=== PATIENT | male | born 1950 | race Caucasian/White ===

== ENCOUNTER 2019-12-14 03:34 | Inpatient (IN) | payer MEDICARE, OTHER ==
[~2019-12-14] VITALS: Ht 180.3 cm; Wt 80.0 kg
[~2019-12-14 03:34] MED LIST: FLUT250M9
[2019-12-14 04:18] LABS: Basophils # (auto) 0.1 10 ^3/uL (0-0.2); Basophils % (auto) 0.8 % (0.0-2.0); Eosinophils # (auto) 1.2 10 ^3/uL (0-0.8); Eosinophils % (auto) 11.7 % (0.0-7.0); Hematocrit 50.3 % (41.0-53.0); Hemoglobin 16.7 g/dL (13.5-17.5); Lymphocytes # (auto) 2.4 10 ^3/uL (0.4-5.4); Lymphocytes % (auto) 24.6 % (10.0-50.0); Mean Corpuscular Hemoglobin 30.8 pg (28.0-32.0); Mean Corpuscular Hgb Conc. 33.1 g/dL (32.0-36.0); Mean Corpuscular Volume 92.9 fL (80.0-100.0); Monocytes # (auto) 0.8 10 ^3/uL (0-1.3); Monocytes % (auto) 8.5 % (0.0-12.0); Neutrophils # (auto) 5.4 10 ^3/uL (1.6-8.6); Neutrophils % (auto) 54.4 % (37.0-80.0); Nucleated Red Blood Cells % 0.1 %; Platelet Count (auto) 260 10^3/uL (140-450); Red Blood Cells 5.41 10^6/uL (4.5-5.90); Red Cell Distribution Width 12.9 % (11.8-14.3); White Blood Cell 9.9 10^3/uL (4.4-10.8)
[2019-12-14 04:37] LABS: Albumin 3.5 g/dL (3.4-5.0); Calcium 9.1 mg/dL (8.5-10.1); Potassium 3.8 mmol/L (3.5-5.1)
[2019-12-14 04:40] LABS: BUN/Creatinine Ratio 15.3; Magnesium 2.3 mg/dL (1.6-2.6)
[2019-12-14 04:45] LABS: Bilirubin, Total 0.4 mg/dL (0.2-1.0); Total Protein 7.4 g/dL (6.4-8.2)
[2019-12-14] MEDS ORDERED: DEXTROSE (50%) 50ML SYRG IV PRN (07:15)
[2019-12-14] MEDS ORDERED: ONDANSETRON HCL 4 MG/2 ML VIAL IV PRN (07:15)
[2019-12-14] MEDS ORDERED: LORazepam 0.5 MG TAB PO PRN (07:15)
[2019-12-14] MEDS ORDERED: HYDROcodone-ACET 5/325MG TAB PO PRN (07:15)
[2019-12-14] MEDS ORDERED: DOCUSATE SOD 100 MG CAP PO PRN (07:15)
[2019-12-14] MEDS ORDERED: ACETAMINOPHEN 325 MG TAB PO PRN (07:15)
[2019-12-14] MEDS ORDERED: MORPHINE SULFATE 4 MG/ML SYR/VIAL IV PRN (07:15)
[2019-12-14] MEDS: SODIUM CHLORIDE 0.9% 1,000 ML IV SCH (07:50)
[2019-12-14] MEDS: ACCU-CHEK COMFORT CURVE STRIP VI SCH ×4 (07:51→20:23)
[2019-12-14] MEDS: InsuLIN REG 1unit/0.01ml Soln (100units/ml) SC SCH ×4 (07:51→20:00)
[2019-12-14] MEDS: ALBUTEROL SULF 2.5 MG/0.5ML(0.5%) NEB SOLN NEB PRN ×3 (09:01→21:54)
[2019-12-14] MEDS: IPRATROPIUM BROM 0.5 MG/2.5ML INH SOL NEB PRN ×2 (09:01→19:30)
[2019-12-14] MEDS: cefTRIAXone 1GM/50ML D5W 50 ML IV SCH (09:42)
[2019-12-14] MEDS ORDERED: methylPREDNISolone SOD SUCC 125 MG/2 ML VL IV SCH (10:00)
[2019-12-14 10:42] VITALS: BP 117/82
--- NOTE | 2019-12-14 10:47 | NUR ---
Telemetry admit from ER: SOTO CHAUDHARY admitted to Telemetry unit after SBAR received. Patient oriented to JANICE ESPINAL, RN primary RN, unit, room, bed, and unit policies regarding patient care and visiting hours. Patient now on continuous telemetry monitoring, tele box # 64 and telemetry reading on arrival to unit is ST. Patient placed on bedside oxygen 2 LPM, weighed by bedscale and encouraged to call if they need something. All questions and concerns addressed, patient verbalized understanding.
[2019-12-14 10:50] VITALS: BP 127/83
--- NOTE | 2019-12-14 11:55 | NUR ---
DR. MCCURDY: Dr. Almanza at bedside. Discussed POC with patient, patient verbally agreed. Per Dr. Almanza request, Dr. Roca was called.
[2019-12-14 13:00] VITALS: BP 146/77
--- NOTE | 2019-12-14 14:59 | NUR ---
DR. MCCURDY: Dr. Roca at bedside. Discussed POC with patient. Patient verbally agreed.
[2019-12-14] MEDS ORDERED: AZITHROMYCIN 250 MG TAB PO ONE (15:15)
[2019-12-14 16:49] VITALS: BP 124/75
--- NOTE | 2019-12-14 17:45 | NUR ---
Sputum sample collected and sent. MRSA sawb collected and sent. Flu swab collected and sent.
--- NOTE | 2019-12-14 18:57 | NUR ---
Closing note: Patient resting in bed. On 2 LPM NC. no S/S of distress, SOB or pain at this time. Care endorsed to NOC RN.
--- NOTE | 2019-12-14 19:30 | NUR ---
Respiratory note: PAGED TO BEDSIDE FOR MED NEB TX . PT PRESENTING WITH SOB AND BS ARE COURSE WHEEZES T/O RIGHT LUNG, DIMINISHED TO RIGHT LUNG. POST MED NEB BS HEARD, IMPROVED AERATION, FINE COURSE WHEEZES HEARD T/O BILATERAL LUNGS. RT NAMEN AND PAGER ASSIGNMENT WRITTEN ON PTS ROOM BOARD WILL CONTINUE TO MONITOR.
--- NOTE | 2019-12-14 19:35 | NUR ---
Opening Shift Note Assumed care of patient, awake and alert. Complained of SOB. O2 Sat at 92% at 2 Lpm/NC, lungs wheezes upon auscultation. Paged RT for breathing treatment, will continue to monitor for changes Q1hr and PRN.
[2019-12-14 20:00] VITALS: BP 125/73
--- NOTE | 2019-12-14 20:15 | NUR ---
Patient refused Insulin for now. Per patient, he just ate his dinner. Will check Blood Sugar at 0000
[2019-12-14 21:02] LABS: Urine Bacteria NONE SEEN /hpf (None Seen); Urine Blood Negative /uL (Negative); Urine Mucus FEW (None Seen); Urine Specific Gravity 1.016 (1.001-1.035); Urine WBC 2 /hpf (0 - 3)
[2019-12-14 21:21] LABS: Alcohol, Urine < 3.0 mg/dL (0-5); Amphetamine Screen, Urine NEGATIVE (NEGATIVE); Barbiturate Scree,Urine NEGATIVE (NEGATIVE); Benzodiazephine Screen, Urine NEGATIVE (NEGATIVE); Cannabinoid Screen, Urine NEGATIVE (NEGATIVE); Cocaine Screen, Urine NEGATIVE (NEGATIVE); Opiate Scree,Urine NEGATIVE (NEGATIVE); Phencyclidine Screen, Urine NEGATIVE (NEGATIVE)
[2019-12-14] MEDS: methylPREDNISolone SOD SUCC 125 MG/2 ML VL IV SCH (21:35)
[2019-12-14] MEDS: ACETYLCYSTEINE 10 %(100MG/ML) SOL 4ML NEB SCH (21:54)
--- NOTE | 2019-12-14 21:58 | NUR ---
Respiratory note: AT BEDSIDE FOR MED NAYAN KELLY.
[2019-12-14 22:20] VITALS: BP 125/73
[2019-12-15] MEDS: ACCU-CHEK COMFORT CURVE STRIP VI SCH ×7 (00:41→23:50)
[2019-12-15] MEDS: SODIUM CHLORIDE 0.9% 1,000 ML IV SCH ×2 (00:41→18:41)
[2019-12-15] MEDS: InsuLIN REG 1unit/0.01ml Soln (100units/ml) SC SCH ×7 (04:00→23:51)
[2019-12-15] MEDS: methylPREDNISolone SOD SUCC 125 MG/2 ML VL IV SCH ×3 (05:42→21:23)
[2019-12-15] MEDS: PANTOPRAZOLE 40 MG TAB PO SCH ×2 (05:43→10:07)
[2019-12-15 05:50] VITALS: BP 119/80
--- NOTE | 2019-12-15 07:17 | NUR ---
Opening Shift Note: Assumed care of patient, awake and alert. No S/S of distress/SOB or pain. Bed in lowest locked position, side rails up x 2, call light within reach. Patient on 2 LPM NC. Patient instructed on POC and to call for assist PRN, will continue to monitor for changes Q1hr and PRN.
[2019-12-15] MEDS: ALBUTEROL SULF 2.5 MG/0.5ML(0.5%) NEB SOLN NEB PRN ×3 (07:26→22:41)
[2019-12-15] MEDS: ACETYLCYSTEINE 10 %(100MG/ML) SOL 4ML NEB SCH ×3 (07:26→22:41)
[2019-12-15] MEDS: IPRATROPIUM BROM 0.5 MG/2.5ML INH SOL NEB PRN ×3 (07:26→22:41)
--- NOTE | 2019-12-15 07:33 | NUR ---
med neb tx administerec with ez pap peep set to 5 cmh2o. pt tolerated well with good pt effort.
[2019-12-15 09:00] VITALS: BP 114/64
[2019-12-15] MEDS: cefTRIAXone 1GM/50ML D5W 50 ML IV SCH (10:06)
[2019-12-15] MEDS: AZITHROMYCIN 250 MG TAB PO SCH (10:07)
[2019-12-15 13:00] VITALS: BP 141/66
--- NOTE | 2019-12-15 14:27 | NUR ---
MED NEB ADMINISTERED WITH EZ PAP THERAPY, PEEP 5 CM H2O. PT TOLERATED TX WELL WITH GOOD PT EFFORT. NO ADVERSE REACTIONS TO MEDICATION.
[2019-12-15 16:56] VITALS: BP 116/58
--- NOTE | 2019-12-15 19:20 | NUR ---
CLOSING NOTE: Patient resting in bed. No S/S of pain distress or SOB at this time. Care endorsed to NOC RN.
[2019-12-15 21:21] VITALS: BP 128/83
[2019-12-16] MEDS: InsuLIN REG 1unit/0.01ml Soln (100units/ml) SC SCH ×5 (04:00→20:00)
[2019-12-16] MEDS: ACCU-CHEK COMFORT CURVE STRIP VI SCH ×5 (04:42→20:09)
[2019-12-16] MEDS: methylPREDNISolone SOD SUCC 125 MG/2 ML VL IV SCH ×3 (05:34→21:36)
[2019-12-16 05:35] VITALS: BP 136/82
[2019-12-16] MEDS: ACETYLCYSTEINE 10 %(100MG/ML) SOL 4ML NEB SCH ×3 (07:32→22:57)
[2019-12-16] MEDS: ALBUTEROL SULF 2.5 MG/0.5ML(0.5%) NEB SOLN NEB PRN ×3 (07:32→22:57)
[2019-12-16] MEDS: IPRATROPIUM BROM 0.5 MG/2.5ML INH SOL NEB PRN ×3 (07:32→22:57)
--- NOTE | 2019-12-16 07:35 | NUR ---
MED NEB ADMINISTERED WITH EZ PAP 5 CM H2O PEEP. PT TOLERATED WELL WITH GOOD PT EFFORT.
[2019-12-16 08:00] VITALS: BP 130/83
[2019-12-16 09:00] VITALS: BP 130/83
[2019-12-16] MEDS: AZITHROMYCIN 250 MG TAB PO SCH (09:48)
[2019-12-16] MEDS: PANTOPRAZOLE 40 MG TAB PO SCH (09:48)
[2019-12-16] MEDS: SODIUM CHLORIDE 0.9% 1,000 ML IV SCH (09:48)
[2019-12-16] MEDS: cefTRIAXone 1GM/50ML D5W 50 ML IV SCH (09:48)
--- NOTE | 2019-12-16 11:35 | NUR ---
DR HODGSON BEDSIDE WITH PATIENT DISCUSSING PLAN OF CARE. ORDERS CARRIED OUT RECEIVED.
[2019-12-16 13:00] VITALS: BP 124/78
--- NOTE | 2019-12-16 13:25 | NUR ---
RECEIVED CALL FROM RT, PATIENT DOES NOT QUALIFY FOR HOME 02. PAGED DR HODGSON TO INFORM HIM.
--- NOTE | 2019-12-16 14:20 | NUR ---
DR HODGSON HOLDING D/C FOR 1 MORE DAY. RT PAGED TO ACCESS PATIENTS 02 AFTER AMBULATION
--- NOTE | 2019-12-16 16:22 | NUR ---
Patient is a 69-year-old male who is alert and oriented. Prior to admission patient lived home with his family and functioned independently. Patient informed me he can care for his own ADLs. Per patient he will return home to his prior living arrangements post discharge and family will transport him home. Advised patient there is a Social Service consult for home oxygen and nebulizer. Informed patient nurse advised me ABG results came in and he does not meet criteria for home oxygen however, will let doctor know to evaluate him. Informed patient Clinical information will be faxed to [facility]. Nurse advised me doctor will keep patient another day to see how he does without oxygen and will evaluate on Sunday12-17-2019. Informed patient he has the right to participate in all discharge planning. Patient verbalized understanding and agrees to discharge plan. Faxed Clinical information to [facility]. Griffin Chavira with [employer] order was received and they will review order. Will follow up in the morning. Addendum: 12/16/19 at 1624 by LAUREANO PATEL Amended: Links added.
[2019-12-16 16:43] VITALS: BP 146/85
--- NOTE | 2019-12-16 16:45 | NUR ---
PATIENT AMBULATED UP AND DOWN [place] WITHOUT OXYGEN. PATIENTS O2 SAT AT 84% WITH SOB UPON RETURN TO BED. PATIENT BACK ON 2LNC. WILL CONTINUE TO MONITOR.
--- NOTE | 2019-12-16 16:50 | NUR ---
PATIENT O2 AT 94% ON 2LNC
--- NOTE | 2019-12-16 19:50 | NUR ---
Opening Shift Note Assumed care of patient, awake and alert. No S/S of distress/SOB or pain. Instructed on POC and to call for assist PRN. Bed in lowest locked position, call light within reach, side rails up x2, fall precautions in place. Will continue to monitor for changes Q1hr and PRN.
[2019-12-16 22:00] VITALS: BP 143/81
[2019-12-17] MEDS: ACCU-CHEK COMFORT CURVE STRIP VI SCH ×4 (00:05→12:00)
[2019-12-17] MEDS: SODIUM CHLORIDE 0.9% 1,000 ML IV SCH (02:30)
[2019-12-17] MEDS: InsuLIN REG 1unit/0.01ml Soln (100units/ml) SC SCH ×4 (03:57→12:00)
[2019-12-17 05:00] VITALS: BP 130/85
[2019-12-17] MEDS: methylPREDNISolone SOD SUCC 125 MG/2 ML VL IV SCH ×2 (06:07→14:23)
--- NOTE | 2019-12-17 07:30 | NUR ---
Opening shift note Assumed care of patient. Patient A&Ox4, Respirations even and non-labored with no s/s of distress. Discussed POC with patient who verbalized understanding. IV flushed, patent and intact. Bed lowered/locked with 2 side rails up. Will continue to monitor.
[2019-12-17] MEDS: ACETYLCYSTEINE 10 %(100MG/ML) SOL 4ML NEB SCH ×2 (07:39→15:10)
[2019-12-17] MEDS: ALBUTEROL SULF 2.5 MG/0.5ML(0.5%) NEB SOLN NEB PRN ×2 (07:39→16:02)
--- NOTE | 2019-12-17 07:39 | NUR ---
RT NOTE: PT TOLERATED BOTH CPT AND EZ-PAP DURING TX. WILL CONTINUE TO MONITOR.
[2019-12-17 08:00] VITALS: BP 130/85
--- NOTE | 2019-12-17 08:00 | NUR ---
ACCUCHECK ACCU-CHECK 177, INSULIN HELD. PATIENT STATES HE IS NOT DIABETIC AND HIS BLOOD SUGAR WILL GO BACK DOWN ON ITS OWN, BECAUSE HE JUST ATE BREAKFAST. WILL CONTINUE TO MONITOR.
[2019-12-17 08:30] VITALS: BP 132/62
[2019-12-17 10:39] VITALS: BP 132/62
[2019-12-17] MEDS: AZITHROMYCIN 250 MG TAB PO SCH (10:42)
[2019-12-17] MEDS: PANTOPRAZOLE 40 MG TAB PO SCH (10:42)
[2019-12-17] MEDS: cefTRIAXone 1GM/50ML D5W 50 ML IV SCH (10:54)
[2019-12-17 12:34] VITALS: BP 139/70
--- NOTE | 2019-12-17 15:39 | NUR ---
D/C granite polisher apprentice Kelly advised me they repeated ABG and he still does not qualify for home O2. Placed followed up called to Cait Larson ). Cait advised me they will deliver nebulizer to patient home and will teach him how to use it. Nurse Sarah was informed. Addendum: 12/17/19 at 1543 by LAUREANO PATEL Amended: Links added.
[2019-12-17] MEDS: IPRATROPIUM BROM 0.5 MG/2.5ML INH SOL NEB PRN (16:02)
[2019-12-17 16:40] VITALS: BP 116/62
== END 2019-12-17 18:03 | disposition home or self-care (01) | DRG 189 ==
LOC: EDBD 03:34 → ER 03:34 → TELE 03:35 → TELE-WESTW 10:49
PROVIDERS: ADMIT Hospitalist; ATTEND Internal Medicine
DX: J96.01 Acute respiratory failure with hypoxia (principal); J20.9 Acute bronchitis, unspecified; J98.09 Other diseases of bronchus, not elsewhere classified; J43.9 Emphysema, unspecified; R73.9 Hyperglycemia, unspecified; Z79.899 Other long term (current) drug therapy
CPT/HCPCS: 36415; 36600; 71045; 71250; 80053; 80307; 81001; 82805; 82962; 83036; 83735; 83880; 84443; 84484; 85025; 87070; 87081; 87205; 87804; 93005; 94640; 94667; 94668; 96365; 96375; G0378; J0696

== ENCOUNTER 2020-01-13 23:18 | Inpatient (IN) | payer MEDICARE ==
[~2020-01-13] VITALS: Ht 180.3 cm; Wt 75.2 kg
[2020-01-14] VITALS (7 sets, daily range): BP systolic 116–150; BP diastolic 66–77
[2020-01-14 00:26] LABS: Basophils # (auto) 0.1 10 ^3/uL (0-0.2); Basophils % (auto) 1.2 % (0.0-2.0); Eosinophils # (auto) 1.1 10 ^3/uL (0-0.8); Eosinophils % (auto) 10.6 % (0.0-7.0); Hematocrit 49.6 % (41.0-53.0); Hemoglobin 16.4 g/dL (13.5-17.5); Mean Corpuscular Hemoglobin 30.8 pg (28.0-32.0); Mean Corpuscular Volume 93.2 fL (80.0-100.0); Monocytes % (auto) 9.7 % (0.0-12.0); Neutrophils # (auto) 6.2 10 ^3/uL (1.6-8.6); Neutrophils % (auto) 59.5 % (37.0-80.0); Nucleated Red Blood Cells % 0.1 %; Platelet Count (auto) 306 10^3/uL (140-450); Red Blood Cells 5.32 10^6/uL (4.5-5.90); Red Cell Distribution Width 13.4 % (11.8-14.3); White Blood Cell 10.4 10^3/uL (4.4-10.8)
[2020-01-14 00:43] LABS: INR 1.06 (0.9-1.15); Partial Thromboplastin Time 31.7 sec (23.64-32.05)
[2020-01-14 00:44] LABS: Albumin 3.7 g/dL (3.4-5.0); BUN/Creatinine Ratio 13.8; Calcium 8.9 mg/dL (8.5-10.1); Magnesium 2.6 mg/dL (1.6-2.6)
[2020-01-14 00:48] LABS: Bilirubin, Total 0.2 mg/dL (0.2-1.0); Total Protein 7.2 g/dL (6.4-8.2)
[2020-01-14] MEDS ORDERED: IPRATROPIUM BROM 0.5 MG/2.5ML INH SOL NEB ONE (01:15)
[2020-01-14] MEDS ORDERED: LORazepam 2MG/ML-1ML VIAL IV ONE (01:15)
[2020-01-14] MEDS ORDERED: ALBUTEROL SULF 2.5 MG/0.5ML(0.5%) NEB SOLN NEB ONE (01:15)
[2020-01-14] MEDS ORDERED: ALBUTEROL SULF 2.5 MG/0.5ML(0.5%) NEB SOLN ONE (01:15)
[2020-01-14] MEDS ORDERED: methylPREDNISolone SOD SUCC 125 MG/2 ML VL IV ONE (01:15)
[2020-01-14] MEDS ORDERED: IPRATROPIUM BROM 0.5 MG/2.5ML INH SOL ONE (01:15)
[2020-01-14] MEDS ORDERED: cloNIDine HCL 0.1 MG TAB PO PRN (04:45)
[2020-01-14] MEDS ORDERED: ONDANSETRON HCL 4 MG/2 ML VIAL IV PRN (04:45)
[2020-01-14] MEDS ORDERED: TEMAZEPAM 15 MG CAP PO PRN (04:45)
[2020-01-14] MEDS ORDERED: ACETAMINOPHEN 325 MG TAB PO PRN (04:45)
[2020-01-14] MEDS ORDERED: MORPHINE SULF INJ 2 MG/ML SYRINGE 1ML IV PRN (05:00)
[2020-01-14] MEDS ORDERED: NITROGLYCERIN 0.4 MG SL TAB SL PRN (05:00)
--- NOTE | 2020-01-14 05:40 | NUR ---
ARRIVAL NOTE: PATIENT ARRIVED TO UNIT IN WHEELCHAIR. PATIENT AMBULATED TO BED WELL ON HIS OWN.ALERT AND ORIENTED X4. ORIENTED TO PETER PERRY. ORIENTED TO HOSPITAL ROOM AND USE OF CALL LIGHT. ON 3L NC AT THIS TIME. TELE MONITOR #83. DENIES ANY PAIN AT THIS TIME. LUNGS ON AUSCULTATION AT THIS TIME WHEEZING IN ALL KEITH, INSPIRATORY AND EXPIRATORY. REPORTS OXYGEN USE 2L NC AT HOME. UPDATED ON POC. BED IN LOWEST LOCKED POSITION WITH CALL LIGHT WITHIN REACH. WILL CONTINUE CARE.
[2020-01-14] MEDS ORDERED: ALBUAER3 IN (05:57)
[2020-01-14] MEDS ORDERED: IPRIH INH (05:57)
[2020-01-14] MEDS ORDERED: PNEUMOCOCCAL VACC POLYS 25 MCG/0.5 ML VIAL IM ONE (06:15)
[2020-01-14] MEDS: ALBUTEROL SULF 2.5 MG/0.5ML(0.5%) NEB SOLN NEB SCH ×4 (06:27→23:50)
[2020-01-14] MEDS: IPRATROPIUM BROM 0.5 MG/2.5ML INH SOL NEB SCH ×4 (06:27→23:50)
--- NOTE | 2020-01-14 07:32 | NUR ---
RECEIVED REPORT FROM NOC SHIFT RN. PATIENT ASLEEP ON INITIAL ENCOUNTER BUT EASILY AROUSED, ALERT AND ORIENTED X4. DENIES PAIN, NO SOB, NO S/S OF DISTRESS. PLAN OF CARE DISCUSSED. BED IN LOW AND LOCKED POSITION, CALL LIGHT AND PHONE WITHIN REACH. WILL CONTINUE TO MONITOR Q1HR AND PRN.
[2020-01-14] MEDS: cefTRIAXone 1GM/50ML D5W 50 ML IV SCH (09:04)
[2020-01-14] MEDS: FAMOTIDINE 20 MG TAB PO SCH ×2 (09:11→20:54)
[2020-01-14] MEDS: methylPREDNISolone SOD SUCC 125 MG/2 ML VL IV SCH ×2 (09:11→20:54)
[2020-01-14] MEDS: BUDESONIDE (INHALATION) 0.5 MG/2 ML NEB NEB SCH (18:25)
--- NOTE | 2020-01-14 19:45 | NUR ---
Opening Shift Note Assumed care of patient, awake and alert, oriented x 4, follows direction, clear speech. Patient currently on room air with oxygen saturation 90-91%, even and unlabored respirations. Provided patient with humidifier, applied nasal canal at 2L, oxygen saturation on NC 94%. patient ambulates with steady gait. No S/S of distress/SOB or pain. Bed lowest locked position with side rails up x 2 and call light within reach. Instructed on POC and to call for assist PRN, will continue to monitor for changes Q1hr and PRN.
[2020-01-14] MEDS: AZITHROMYCIN 500MG/ 250ML 250 ML IV SCH (21:05)
[2020-01-15 05:00] VITALS: BP 116/74
[2020-01-15 05:50] LABS: Basophils # (auto) 0 10 ^3/uL (0-0.2); Basophils % (auto) 0.1 % (0.0-2.0); Eosinophils # (auto) 0 10 ^3/uL (0-0.8); Hematocrit 46.9 % (41.0-53.0); Hemoglobin 15.3 g/dL (13.5-17.5); Lymphocytes # (auto) 1.6 10 ^3/uL (0.4-5.4); Lymphocytes % (auto) 8.2 % (10.0-50.0); Mean Corpuscular Hemoglobin 30.5 pg (28.0-32.0); Mean Corpuscular Hgb Conc. 32.7 g/dL (32.0-36.0); Mean Corpuscular Volume 93.3 fL (80.0-100.0); Monocytes # (auto) 0.9 10 ^3/uL (0-1.3); Monocytes % (auto) 4.9 % (0.0-12.0); Neutrophils # (auto) 16.7 10 ^3/uL (1.6-8.6); Neutrophils % (auto) 86.8 % (37.0-80.0); Nucleated Red Blood Cells % 0.1 %; Platelet Count (auto) 330 10^3/uL (140-450); Red Blood Cells 5.03 10^6/uL (4.5-5.90); Red Cell Distribution Width 13.3 % (11.8-14.3); White Blood Cell 19.2 10^3/uL (4.4-10.8)
[2020-01-15 06:10] LABS: Calcium 8.9 mg/dL (8.5-10.1)
[2020-01-15 06:11] LABS: BUN/Creatinine Ratio 20.3
[2020-01-15] MEDS: IPRATROPIUM BROM 0.5 MG/2.5ML INH SOL NEB SCH ×2 (06:30→18:38)
[2020-01-15] MEDS: ALBUTEROL SULF 2.5 MG/0.5ML(0.5%) NEB SOLN NEB SCH ×2 (06:30→18:38)
[2020-01-15] MEDS: BUDESONIDE (INHALATION) 0.5 MG/2 ML NEB NEB SCH (06:31)
--- NOTE | 2020-01-15 06:52 | NUR ---
Closing note patient awake resting in bed with oxygen on at 2L via NC, even and unlabored respirations. No s/s of distress.
--- NOTE | 2020-01-15 07:18 | NUR ---
Received care of patient from [facility] shift RN, patient awake, alert, and oriented x4. Denies pain, no SOB or s/s distress noted. Plan of care discussed with patient. Bed in locked and low position, call light and phone within reach. Will continue to monitor q1hr and prn.
[2020-01-15 08:00] VITALS: BP 123/81
[2020-01-15] MEDS: cefTRIAXone 1GM/50ML D5W 50 ML IV SCH (08:50)
[2020-01-15 09:00] VITALS: BP 123/81
[2020-01-15] MEDS: FAMOTIDINE 20 MG TAB PO SCH ×2 (09:01→21:48)
[2020-01-15] MEDS: methylPREDNISolone SOD SUCC 125 MG/2 ML VL IV SCH ×2 (09:01→21:48)
[2020-01-15] MEDS: AZITHROMYCIN 500MG/ 250ML 250 ML IV SCH (10:02)
--- NOTE | 2020-01-15 12:00 | NUR ---
PATIENT TAKEN TO [facility] FOR LEFT HEART CATH WITH DR. MCGUIRE WILL RESUME SCHEDULED MEDICATION UPON RETURN TO UNIT.
[2020-01-15] MEDS ORDERED: fentaNYL CITRATE 100 MCG/2 ML VL ONE (12:06)
[2020-01-15] MEDS ORDERED: ANGIOMAX 250 MG VIAL IV ONE (12:06)
[2020-01-15] MEDS ORDERED: SODIUM CHL 0.9% 0 ML ONE (12:07)
[2020-01-15] MEDS ORDERED: MIDAZOLAM HCL 1MG/1ML-2 ML VIAL ONE (12:07)
[2020-01-15] MEDS ORDERED: LIDOCAINE 2%HCL (LOCAL ANESTH.) INJ 20ML MDV ONE (12:07)
[2020-01-15 13:00] VITALS: BP 114/73
--- NOTE | 2020-01-15 13:28 | NUR ---
PATIENT BACK FROM LEFT HEART CATH PROCEDURE. RIGHT GROIN SITE ACCESSED. DRESSING INTACT, NO S/S BLEEDING NOTED. PATIENT IS REQUIRED TO REMAIN FLAT IN BED AT THIS TIME UNTIL 1500. WILL CONTINUE TO MONITOR FOR ANY CHANGES.
--- NOTE | 2020-01-15 15:50 | NUR ---
PATIENT AWAKE AND IN SITTING POSITION AT THIS TIME, RIGHT GROIN SITE ASSESSED. NO S/S BLEEDING NOTED. WILL CONTINUE TO MONITOR FOR ANY CHANGES.
[2020-01-15 17:14] VITALS: BP 129/71
--- NOTE | 2020-01-15 19:30 | NUR ---
Opening Shift Note Assumed care of patient, awake and alert x4. Patient denies pain or shortness of breath at this time. Patient is on 3L NC, no signs/symptoms of distress noted or verbalized at this time. Instructed on plan of care and to call for assistance as needed, patient verbalized understanding. Bed is locked in lowest position, side rails x 2 are up, and call light is within reach.
[2020-01-15 22:00] VITALS: BP 136/75
[2020-01-16] MEDS: IPRATROPIUM BROM 0.5 MG/2.5ML INH SOL NEB SCH ×3 (00:04→12:26)
[2020-01-16] MEDS: ALBUTEROL SULF 2.5 MG/0.5ML(0.5%) NEB SOLN NEB SCH ×3 (00:04→12:26)
[2020-01-16] MEDS: BUDESONIDE (INHALATION) 0.5 MG/2 ML NEB NEB SCH ×2 (00:04→06:40)
[2020-01-16 05:00] VITALS: BP 113/72
--- NOTE | 2020-01-16 05:04 | NUR ---
Urine collected and sent to lab via bullet.
[2020-01-16 05:10] LABS: Urine WBC None Seen /hpf (0 - 3)
[2020-01-16 05:29] LABS: Urine Bacteria NONE SEEN /hpf (None Seen); Urine Blood Negative /uL (Negative); Urine Specific Gravity 1.027 (1.001-1.035)
--- NOTE | 2020-01-16 07:50 | NUR ---
OPENING SHIFT NOTE: PATIENT AWAKE A/OX4, RESPIRATIONS EVEN AND UNLABORED LUNGS SOUNDS RALES THROUGHOUT ANTERIOR CHEST PATIENT ON 2L NC. [facility] GROIN SITE CDI. UPDATED ON PLAN OF CARE. FALL PRECAUTIONS IN PLACE, CALL LIGHT WITHIN REACH, WILL CONTINUE TO MONITOR.
[2020-01-16] MEDS: cefTRIAXone 1GM/50ML D5W 50 ML IV SCH (08:33)
[2020-01-16] MEDS ORDERED: INFLUENZA QUAD 2019-2020 0.5ml SYRG IM ONE (08:45)
[2020-01-16] MEDS ORDERED: IPRATROPIUM BROM 0.5 MG/2.5ML INH SOL NEB PRN (09:30)
[2020-01-16] MEDS ORDERED: ALBUTEROL SULF 2.5 MG/0.5ML(0.5%) NEB SOLN NEB PRN (09:30)
[2020-01-16] MEDS: FAMOTIDINE 20 MG TAB PO SCH (09:42)
[2020-01-16] MEDS: methylPREDNISolone SOD SUCC 125 MG/2 ML VL IV SCH (09:42)
[2020-01-16] MEDS ORDERED: AZITHROMYCIN 250 MG TAB PO SCH (10:00)
[2020-01-16] MEDS ORDERED: PNEUMOCOCCAL VACC POLYS 25 MCG/0.5 ML VIAL IM ONE (12:15)
[2020-01-16 13:00] VITALS: BP 124/77
--- NOTE | 2020-01-16 15:11 | NUR ---
DISCHARGE: PATIENT GIVEN ALL EDUCATION MATERIALS. PATIENT EDUCATED ON FOLLOW UP APPOINTMENT AND ENCOURAGED TO COMPLETE PULMONARY FUNCTION TESTS OUTPATIENT DIRECTED BY MD HULL. TELE RETURNED TO CARDIO UNIT, IV DISCONTINUED MANUAL PRESSURE APPLIED. PATIENT TAKEN DOWN TO PHARMACY VIA WHEELCHAIR BY THIS RN WITHOUT INCIDENCE. PATIENT TO DRIVE SELF HOME. PATENT LEFT WITH ALL BELONGINGS.
--- NOTE | 2020-01-16 15:43 | NUR ---
assessment Patient is a 69 year old male who is alert and oriented. Patients cognitive abilities are intact. Prior to admission patient lived home with family and functioned independently. Patient informed me he is able to care for his own ADLs. Per patient he will return home to his prior living arrangements post discharge and family will transport him home. Patient informed me he was having SOB and came to ER and was admitted. Patient informed me he has 02 and a nebulizer for home use. Patients PCP is Dr Almanza. Patient feels safe returning home on discharge. Patient has no post discharge needs identified at this time. I informed patient he has a right to speak to a health care social worker regarding all care. I informed patient he has a right to participate in any and all discharge planning. Patient does not have a POA and advanced directive. I have offered patient information on POA and advanced directives. I informed the patient the advantages and benefits of having an Advanced Directive. Patient verbalized understanding and agreed to discharge plan. Addendum: 01/16/20 at 1551 by Montserrat PATEL Amended: Links added.
[2020-06-23] MEDS ORDERED: FLUT1SPR5 (11:41)
[2020-06-23] MEDS ORDERED: PRED20TA2 PO (11:41)
== END 2020-01-16 15:35 | disposition home or self-care (01) | DRG 189 ==
LOC: ER 23:21 → TELE 23:22 → TELE-WESTW 01-14 05:38
PROVIDERS: ADMIT Nurse Practitioner; ATTEND Family Medicine
PROC: 4A023N7 Measurement of Cardiac Sampling and Pressure, Left Heart, Percutaneous Approach (ICD-10-PCS; principal; 2020-01-15)
PROC: B2111ZZ Fluoroscopy of Multiple Coronary Arteries using Low Osmolar Contrast (ICD-10-PCS; 2020-01-15)
PROC: B2151ZZ Fluoroscopy of Left Heart using Low Osmolar Contrast (ICD-10-PCS; 2020-01-15)
DX: J96.21 Acute and chronic respiratory failure with hypoxia (principal); J44.1 Chronic obstructive pulmonary disease with (acute) exacerbation; J44.0 Chronic obstructive pulmonary disease with (acute) lower respiratory infection; J20.9 Acute bronchitis, unspecified; I10 Essential (primary) hypertension; Z99.81 Dependence on supplemental oxygen; Z87.891 Personal history of nicotine dependence; Z80.7 Family history of other malignant neoplasms of lymphoid, hematopoietic and related tissues; Z82.3 Family history of stroke; Z90.49 Acquired absence of other specified parts of digestive tract
CPT/HCPCS: 36415; 36556; 71045; 80048; 80053; 81001; 82728; 83735; 83880; 84484; 85025; 85379; 85610; 85730; 87070; 87081; 87804; 87880; 93005; 93306; 93458; 94640; 96374; 96375; 99152; G0378; J0696; J2250

== ENCOUNTER → 2020-04-27 | Outpatient (CLI) | payer MEDICARE ==
[~2020-04-27] MED LIST changes: +ALBUAER3 IN; +IPRIH INH
[2020-04-27 08:45] LABS: Basophils # (auto) 0 10 ^3/uL (0-0.2); Basophils % (auto) 0.6 % (0.0-2.0); Eosinophils # (auto) 0.9 10 ^3/uL (0-0.8); Eosinophils % (auto) 12.7 % (0.0-7.0); Hematocrit 47.1 % (41.0-53.0); Hemoglobin 15.5 g/dL (13.5-17.5); Lymphocytes # (auto) 1.8 10 ^3/uL (0.4-5.4); Lymphocytes % (auto) 25.6 % (10.0-50.0); Mean Corpuscular Hemoglobin 31.1 pg (28.0-32.0); Mean Corpuscular Volume 94.3 fL (80.0-100.0); Monocytes # (auto) 0.7 10 ^3/uL (0-1.3); Monocytes % (auto) 9.3 % (0.0-12.0); Neutrophils # (auto) 3.7 10 ^3/uL (1.6-8.6); Neutrophils % (auto) 51.8 % (37.0-80.0); Nucleated Red Blood Cells % 0.1 %; Platelet Count (auto) 244 10^3/uL (140-450); Red Cell Distribution Width 13.8 % (11.8-14.3); White Blood Cell 7.2 10^3/uL (4.4-10.8)
[2020-04-27 09:08] LABS: Urine Bacteria NONE SEEN /hpf (None Seen); Urine Blood Negative /uL (Negative); Urine Mucus FEW (None Seen); Urine Specific Gravity 1.014 (1.001-1.035); Urine WBC 5 /hpf (0 - 3)
[2020-04-27 09:10] LABS: Potassium 3.9 mmol/L (3.5-5.1)
[2020-04-27 09:18] LABS: Albumin 3.9 g/dL (3.4-5.0); BUN/Creatinine Ratio 17.4; Bilirubin, Total 0.4 mg/dL (0.2-1.0); Total Protein 6.8 g/dL (6.4-8.2)
== END | disposition home or self-care (01) ==
LOC: LAB 08:19
PROVIDERS: ATTEND Nurse Practitioner
DX: E78.5 Hyperlipidemia, unspecified (principal); I10 Essential (primary) hypertension
CPT/HCPCS: 36415; 80053; 80061; 81001; 85025

== ENCOUNTER 2020-06-21 03:28 | Inpatient (IN) | payer MEDICARE ==
[~2020-06-21] VITALS: Ht 177.8 cm; Wt 80.1 kg
[2020-06-21] MEDS ORDERED: ALBUTEROL SULF 2.5 MG/0.5ML(0.5%) NEB SOLN NEB ONE (03:45)
[2020-06-21] MEDS ORDERED: IPRATROPIUM BROM 0.5 MG/2.5ML INH SOL NEB ONE (03:45)
[2020-06-21] MEDS ORDERED: IPRATROPIUM BROM 0.5 MG/2.5ML INH SOL HHN ONE (03:45)
[2020-06-21] MEDS ORDERED: ALBUTEROL SULF 2.5 MG/0.5ML(0.5%) NEB SOLN HHN ONE (03:45)
[2020-06-21] MEDS ORDERED: methylPREDNISolone SOD SUCC 125 MG/2 ML VL IV ONE (03:45)
[2020-06-21 04:12] LABS: Basophils # (auto) 0 10 ^3/uL (0-0.2); Basophils % (auto) 0.5 % (0.0-2.0); Eosinophils # (auto) 1.1 10 ^3/uL (0-0.8); Eosinophils % (auto) 12.1 % (0.0-7.0); Hematocrit 49.3 % (41.0-53.0); Hemoglobin 16.7 g/dL (13.5-17.5); Lymphocytes % (auto) 22.3 % (10.0-50.0); Mean Corpuscular Hgb Conc. 33.8 g/dL (32.0-36.0); Mean Corpuscular Volume 94.5 fL (80.0-100.0); Monocytes # (auto) 0.7 10 ^3/uL (0-1.3); Monocytes % (auto) 8.4 % (0.0-12.0); Neutrophils % (auto) 56.7 % (37.0-80.0); Nucleated Red Blood Cells % 0.1 %; Platelet Count (auto) 241 10^3/uL (140-450); Red Blood Cells 5.21 10^6/uL (4.5-5.90); Red Cell Distribution Width 13.3 % (11.8-14.3); White Blood Cell 8.8 10^3/uL (4.4-10.8)
[2020-06-21 04:32] LABS: Potassium 3.9 mmol/L (3.5-5.1)
[2020-06-21 04:42] LABS: BUN/Creatinine Ratio 17.9; Bilirubin, Total 0.2 mg/dL (0.2-1.0); Calcium 9.1 mg/dL (8.5-10.1); Magnesium 2.6 mg/dL (1.6-2.6)
[2020-06-21] MEDS ORDERED: MORPHINE SULF INJ 2 MG/ML SYRINGE 1ML IV PRN (08:00)
[2020-06-21] MEDS ORDERED: NITROGLYCERIN 0.4 MG SL TAB SL PRN (08:00)
[2020-06-21] MEDS ORDERED: ONDANSETRON HCL 4 MG/2 ML VIAL IV PRN (08:00)
[2020-06-21] MEDS ORDERED: DOCUSATE SOD 100 MG CAP PO PRN (08:00)
[2020-06-21] MEDS ORDERED: ACETAMINOPHEN 325 MG TAB PO PRN (08:00)
[2020-06-21 09:13] LABS: Urine Bacteria NONE SEEN /hpf (None Seen); Urine Blood Negative /uL (Negative); Urine Specific Gravity 1.008 (1.001-1.035); Urine WBC 1 /hpf (0 - 3)
[2020-06-21 09:40] LABS: Basophils # (auto) 0 10 ^3/uL (0-0.2); Basophils % (auto) 0.2 % (0.0-2.0); Eosinophils # (auto) 0 10 ^3/uL (0-0.8); Eosinophils % (auto) 0.4 % (0.0-7.0); Hemoglobin 16.5 g/dL (13.5-17.5); Lymphocytes # (auto) 0.6 10 ^3/uL (0.4-5.4); Lymphocytes % (auto) 7.4 % (10.0-50.0); Mean Corpuscular Hemoglobin 31.9 pg (28.0-32.0); Mean Corpuscular Hgb Conc. 33.6 g/dL (32.0-36.0); Mean Corpuscular Volume 94.8 fL (80.0-100.0); Monocytes # (auto) 0.1 10 ^3/uL (0-1.3); Monocytes % (auto) 0.8 % (0.0-12.0); Neutrophils # (auto) 7.8 10 ^3/uL (1.6-8.6); Neutrophils % (auto) 91.2 % (37.0-80.0); Nucleated Red Blood Cells % 0.2 %; Platelet Count (auto) 236 10^3/uL (140-450); Red Blood Cells 5.17 10^6/uL (4.5-5.90); Red Cell Distribution Width 13.3 % (11.8-14.3); White Blood Cell 8.5 10^3/uL (4.4-10.8)
[2020-06-21 09:46] LABS: BUN/Creatinine Ratio 17.7; Calcium 9.5 mg/dL (8.5-10.1); Potassium 4.2 mmol/L (3.5-5.1)
[2020-06-21] MEDS: PANTOPRAZOLE 40 MG/10 ML VIAL INJ IV SCH (10:20)
[2020-06-21] MEDS: ENOXAPARIN SOD 40 MG/0.4 ML SYRINGE SC SCH (10:21)
[2020-06-21] MEDS: ASCORBIC ACID 500 MG TAB PO SCH ×2 (10:21→21:28)
[2020-06-21] MEDS: MULTIPLE VITAMIN TAB PO SCH (10:21)
[2020-06-21] MEDS ORDERED: IOHEXOL 350 MG/ML 100ML IJ ONE ×2 (10:32→17:01)
--- NOTE | 2020-06-21 10:37 | NUR ---
report received from Stella THORNTON RN.
[2020-06-21] MEDS: ALBUTEROL SULF 2.5 MG/0.5ML(0.5%) NEB SOLN NEB SCH ×3 (11:02→22:21)
[2020-06-21] MEDS ORDERED: CHOL20009 PO (11:53)
[2020-06-21] MEDS ORDERED: BUDE1AER5 IN (11:53)
[2020-06-21] MEDS ORDERED: ALBU0.084 NEB (11:53)
[2020-06-21] MEDS ORDERED: ASCO500T11 PO (11:53)
[2020-06-21] MEDS ORDERED: IPRAAER6 IN (11:53)
[2020-06-21 11:58] VITALS: BP 164/95
[2020-06-21] MEDS ORDERED: IPRA0.00 IN (11:58)
--- NOTE | 2020-06-21 11:58 | NUR ---
Telemetry admit from ER SOTO CHAUDHARY admitted to Telemetry unit after SBAR received. Patient oriented to EZIO hahn RN, unit, room, bed, and unit policies regarding patient care and visiting hours. Patient now on continuous telemetry monitoring, tele box # 6 and telemetry reading on arrival to unit is ST 106. Patient placed on bedside oxygen, weighed by bedscale and encouraged to call if they need something. All questions and concerns addressed, patient verbalized understanding.
[2020-06-21] MEDS: IPRATROPIUM BROMIDE HFA AER IN SCH ×3 (12:00→22:00)
--- NOTE | 2020-06-21 12:20 | NUR ---
physician paged provider paged regarding blood pressure awaiting call back.
--- NOTE | 2020-06-21 12:26 | NUR ---
RECEIVED CALL BACK Received call back from provider brett. New orders received.
[2020-06-21] MEDS ORDERED: LABETALOL HCL 5 MG/ML 4ML SYRINGE IV PRN (12:30)
--- NOTE | 2020-06-21 12:45 | NUR ---
physician rounding Dr. Ridley at bedside. MD updated patient on plan of care and patient verbalized understanding.
[2020-06-21 13:00] VITALS: BP 164/95
[2020-06-21 13:45] VITALS: BP 140/76
[2020-06-21] MEDS ORDERED: ALBUTEROL SULF HFA 90MCG INH 200DOSE IN SCH (14:00)
[2020-06-21] MEDS ORDERED: methylPREDNISolone SOD SUCC 125 MG/2 ML VL IV SCH (14:00)
[2020-06-21] MEDS ORDERED: guaiFENesin 200 MG/10 ML UD GT PRN (14:45)
[2020-06-21 15:13] VITALS: BP 142/74
[2020-06-21] MEDS: SODIUM CHLOR 0.9% PF (SALINE LOCK) 10ML VIAL/SYR IV SCH ×2 (15:16→22:00)
[2020-06-21] MEDS: methylPREDNISolone SOD SUCC 125 MG/2 ML VL IV SCH (15:20)
[2020-06-21] MEDS: ACETAMINOPHEN 325 MG TAB PO PRN (15:20)
[2020-06-21 17:00] VITALS: BP 145/100
--- NOTE | 2020-06-21 17:10 | NUR ---
charge nurse Margie notified regarding patient COVID PCR result being negative.
--- NOTE | 2020-06-21 19:00 | NUR ---
end of shift noted Endorsed care to NOC RN. No s/s of distress noted.
--- NOTE | 2020-06-21 20:10 | NUR ---
assumed care of pt, alert and oriented skin CDI, IV patent, no s/s of distress.
--- NOTE | 2020-06-21 20:14 | NUR ---
PATIENT TRANSFERRED TO ROOM 15B Patient transferred to room 215B via wheelchair and receiving 4L O2 via simple mask. No s/s of distress noted. Respirations are even and unlabored. Full report was given to receiving RNAmy. Will endorse care.
[2020-06-21] MEDS: MORPHINE SULFATE 4 MG/ML SYR/VIAL IV PRN ×3 (20:55→21:28)
[2020-06-21 22:17] VITALS: BP 142/94
[2020-06-21] MEDS: BUDESONIDE (INHALATION) 0.5 MG/2 ML NEB NEB SCH (22:21)
[2020-06-22 00:03] LABS: Amphetamine Screen, Urine NEGATIVE (NEGATIVE); Barbiturate Scree,Urine NEGATIVE (NEGATIVE); Benzodiazephine Screen, Urine NEGATIVE (NEGATIVE); Cannabinoid Screen, Urine NEGATIVE (NEGATIVE); Cocaine Screen, Urine NEGATIVE (NEGATIVE); Opiate Scree,Urine NEGATIVE (NEGATIVE); Phencyclidine Screen, Urine NEGATIVE (NEGATIVE)
[2020-06-22 05:38] VITALS: BP 115/70
[2020-06-22 05:43] LABS: Basophils # (auto) 0 10 ^3/uL (0-0.2); Basophils % (auto) 0.1 % (0.0-2.0); Eosinophils # (auto) 0 10 ^3/uL (0-0.8); Eosinophils % (auto) 0.1 % (0.0-7.0); Hematocrit 48.2 % (41.0-53.0); Hemoglobin 16.1 g/dL (13.5-17.5); Lymphocytes # (auto) 1.6 10 ^3/uL (0.4-5.4); Lymphocytes % (auto) 9.2 % (10.0-50.0); Mean Corpuscular Hemoglobin 31.6 pg (28.0-32.0); Mean Corpuscular Hgb Conc. 33.4 g/dL (32.0-36.0); Mean Corpuscular Volume 94.7 fL (80.0-100.0); Monocytes # (auto) 1.5 10 ^3/uL (0-1.3); Monocytes % (auto) 8.3 % (0.0-12.0); Neutrophils # (auto) 14.7 10 ^3/uL (1.6-8.6); Neutrophils % (auto) 82.3 % (37.0-80.0); Nucleated Red Blood Cells % 0.1 %; Platelet Count (auto) 292 10^3/uL (140-450); Red Blood Cells 5.09 10^6/uL (4.5-5.90); Red Cell Distribution Width 13.3 % (11.8-14.3); White Blood Cell 17.8 10^3/uL (4.4-10.8)
[2020-06-22] MEDS: SODIUM CHLOR 0.9% PF (SALINE LOCK) 10ML VIAL/SYR IV SCH ×3 (06:00→22:15)
[2020-06-22 06:01] LABS: Potassium 4.4 mmol/L (3.5-5.1)
[2020-06-22 06:10] LABS: Albumin 3.9 g/dL (3.4-5.0); BUN/Creatinine Ratio 21.3; Bilirubin, Total 0.3 mg/dL (0.2-1.0); Calcium 9.8 mg/dL (8.5-10.1); Total Protein 6.9 g/dL (6.4-8.2)
[2020-06-22] MEDS: ALBUTEROL SULF 2.5 MG/0.5ML(0.5%) NEB SOLN NEB SCH ×3 (06:45→23:21)
[2020-06-22] MEDS: IPRATROPIUM BROM 0.5 MG/2.5ML INH SOL NEB SCH ×3 (06:45→23:22)
[2020-06-22] MEDS: BUDESONIDE (INHALATION) 0.5 MG/2 ML NEB NEB SCH ×2 (06:48→23:21)
--- NOTE | 2020-06-22 08:00 | NUR ---
Opening Shift Note Assumed care of patient, awake, alert and oriented X4. No S/S of distress/SOB or pain. O2 @ 6 LPM via simple mask with sats at 99%. Tele# 28, sinus rhythm @ 81 bpm. IV to left antecubital, 18 gauge, patent and saline locked. Instructed on POC and to call for assist PRN, verbalized understanding. Bed locked, in lowest position, call light within reach, will continue to monitor for changes Q1hr and PRN.
[2020-06-22 09:00] VITALS: BP 120/74
[2020-06-22] MEDS: PANTOPRAZOLE 40 MG/10 ML VIAL INJ IV SCH (10:01)
[2020-06-22] MEDS: ASCORBIC ACID 500 MG TAB PO SCH ×2 (10:02→22:15)
[2020-06-22] MEDS: MULTIPLE VITAMIN TAB PO SCH (10:02)
[2020-06-22] MEDS: ENOXAPARIN SOD 40 MG/0.4 ML SYRINGE SC SCH (10:02)
[2020-06-22] MEDS: methylPREDNISolone SOD SUCC 125 MG/2 ML VL IV SCH (10:02)
--- NOTE | 2020-06-22 10:30 | NUR ---
PULMONARY Dr Jolly at bedside for Pulmonary follow up. Verbalized to decrease O2 to keep sats > 88%.
--- NOTE | 2020-06-22 11:30 | NUR ---
ROUNDS Dr Mccauley at bedside for rounds, new orders received and followed through. Patient updated on plan of care, verbalized understanding.
--- NOTE | 2020-06-22 11:45 | NUR ---
O2 Patient switched from simple mask @ 6 LMP to nasal cannula @ 3 LPM with sats @ 94%. No complaints of SOB.
[2020-06-22] MEDS ORDERED: MORPHINE SULFATE 4 MG/ML SYR/VIAL IV PRN (12:00)
[2020-06-22] MEDS ORDERED: MORPHINE SULF INJ 2 MG/ML SYRINGE 1ML IV PRN (12:00)
[2020-06-22 13:00] VITALS: BP 116/77
[2020-06-22 17:00] VITALS: BP 127/69
--- NOTE | 2020-06-22 19:09 | NUR ---
Care endorsed to PETER Dalal,night nurse
[2020-06-22] MEDS: ACETAMINOPHEN 325 MG TAB PO PRN (20:09)
[2020-06-22 21:00] VITALS: BP 136/74
[2020-06-23 05:00] VITALS: BP 126/78
[2020-06-23] MEDS: SODIUM CHLOR 0.9% PF (SALINE LOCK) 10ML VIAL/SYR IV SCH ×2 (06:00→14:03)
[2020-06-23 06:32] LABS: BUN/Creatinine Ratio 32.1; Calcium 9.4 mg/dL (8.5-10.1)
[2020-06-23] MEDS: BUDESONIDE (INHALATION) 0.5 MG/2 ML NEB NEB SCH (06:32)
[2020-06-23] MEDS: ALBUTEROL SULF 2.5 MG/0.5ML(0.5%) NEB SOLN NEB SCH ×2 (06:32→14:00)
[2020-06-23] MEDS: IPRATROPIUM BROM 0.5 MG/2.5ML INH SOL NEB SCH ×2 (06:32→14:00)
--- NOTE | 2020-06-23 08:00 | NUR ---
Opening Shift Note Assumed care of patient, awake, alert and oriented X4. No S/S of distress/SOB or pain. O2 @ 2 LPM via nasal cannula with sats at 94%. Tele# 28, sinus rhythm @ 74 bpm. IV to left antecubital, 18 gauge, patent and saline locked. Instructed on POC and to call for assist PRN, verbalized understanding. Bed locked, in lowest position, call light within reach, will continue to monitor for changes Q1hr and PRN.
[2020-06-23 09:00] VITALS: BP 143/85
[2020-06-23] MEDS ORDERED: methylPREDNISolone SOD SUCC 125 MG/2 ML VL IV SCH (10:00)
[2020-06-23] MEDS ORDERED: PANTOPRAZOLE 40 MG TAB PO SCH (10:00)
[2020-06-23] MEDS: MULTIPLE VITAMIN TAB PO SCH (10:14)
[2020-06-23] MEDS: ASCORBIC ACID 500 MG TAB PO SCH (10:14)
[2020-06-23] MEDS: ENOXAPARIN SOD 40 MG/0.4 ML SYRINGE SC SCH (10:17)
[2020-06-23] MEDS ORDERED: PRED20TA2 PO (11:41)
[2020-06-23] MEDS ORDERED: FLUT1SPR5 (11:41)
--- NOTE | 2020-06-23 11:45 | NUR ---
ROUNDS Dr Mccauley at bedside for rounds, new orders received and followed through. Patient updated on plan of care, verbalized understanding.
[2020-06-23 13:00] VITALS: BP 149/78
--- NOTE | 2020-06-23 16:11 | NUR ---
Discharge instructions given as ordered. Encourage to follow up with PMD as instructed. All questions and concerns addressed. Patient verbalized understanding. Medication reconciliation form completed and copy given to patient. IV removed with catheter intact, pressure dressing applied. Telemetry unit returned to ICU. Patient awaiting [employer].
--- NOTE | 2020-06-23 16:30 | NUR ---
Patient taken to lobby via wheelchair with all personal belongings, accompanied by staff member. No distress noted at time of departure.
== END 2020-06-23 16:30 | disposition home or self-care (01) | DRG 190 ==
LOC: EDSEX 03:28 → EDBD 03:28 → ER 03:35 → TELE 03:36 → TELE-EAST 11:58 → TELE-CENTR 20:10
PROVIDERS: ADMIT Nurse Practitioner Family; ATTEND Internal Medicine
DX: J44.1 Chronic obstructive pulmonary disease with (acute) exacerbation (principal); J96.20 Acute and chronic respiratory failure, unspecified whether with hypoxia or hypercapnia; J45.909 Unspecified asthma, uncomplicated; I10 Essential (primary) hypertension; Z20.828 Contact with and (suspected) exposure to other viral communicable diseases; Z87.891 Personal history of nicotine dependence; Z90.49 Acquired absence of other specified parts of digestive tract; Z82.3 Family history of stroke; Z80.8 Family history of malignant neoplasm of other organs or systems; Z98.890 Other specified postprocedural states; Z03.89 Encounter for observation for other suspected diseases and conditions ruled out; Z79.51 Long term (current) use of inhaled steroids
CPT/HCPCS: 36415; 36600; 71045; 71275; 80048; 80053; 80307; 81001; 82805; 83735; 83880; 84484; 85025; 85379; 87426; 93970; 94640; 99291; C9113; G0378; J2405

== ENCOUNTER → 2020-07-08 | Outpatient (CLI) | payer MEDICARE ==
[~2020-07-08] MED LIST changes: +ALBU0.084 NEB; +ALBUTEROL SULF 2.5 MG/0.5ML(0.5%) NEB SOLN ONE; +ASCO500T11 PO; +BUDE1AER5 IN; +CHOL20009 PO; +FLUT1SPR5; -FLUT250M9; +IPRA0.00 IN; -IPRIH INH; +PRED20TA2 PO
== END | disposition home or self-care (01) ==
LOC: RT 10:43
PROVIDERS: ATTEND Internal Medicine Pulmonary Disease
DX: J44.9 Chronic obstructive pulmonary disease, unspecified (principal)
CPT/HCPCS: 94060; 94618; 94727; 94729

== ENCOUNTER → 2021-02-08 | Outpatient (CLI) | payer MEDICARE, MEDICAID ==
[~2021-02-08] MED LIST changes: -ALBUTEROL SULF 2.5 MG/0.5ML(0.5%) NEB SOLN ONE
[2021-02-08 11:05] LABS: Basophils # (auto) 0 10 ^3/uL (0-0.2); Basophils % (auto) 0.6 % (0.0-2.0); Eosinophils % (auto) 12.3 % (0.0-7.0); Hematocrit 47.3 % (41.0-53.0); Hemoglobin 16.4 g/dL (13.5-17.5); Lymphocytes # (auto) 2.2 10 ^3/uL (0.4-5.4); Lymphocytes % (auto) 27.5 % (10.0-50.0); Mean Corpuscular Hemoglobin 32.3 pg (28.0-32.0); Mean Corpuscular Hgb Conc. 34.8 g/dL (32.0-36.0); Mean Corpuscular Volume 92.9 fL (80.0-100.0); Monocytes # (auto) 0.6 10 ^3/uL (0-1.3); Neutrophils # (auto) 4.1 10 ^3/uL (1.6-8.6); Neutrophils % (auto) 51.6 % (37.0-80.0); Nucleated Red Blood Cells % 0.2 %; Platelet Count (auto) 263 10^3/uL (140-450); Red Blood Cells 5.09 10^6/uL (4.5-5.90); Red Cell Distribution Width 13.4 % (11.8-14.3)
[2021-02-08 11:39] LABS: Albumin 3.8 g/dL (3.4-5.0); Calcium 9.2 mg/dL (8.5-10.1)
[2021-02-08 11:43] LABS: BUN/Creatinine Ratio 12.6; Bilirubin, Total 0.5 mg/dL (0.2-1.0); Total Protein 7.2 g/dL (6.4-8.2)
== END | disposition home or self-care (01) ==
LOC: LAB 10:43
PROVIDERS: ATTEND Nurse Practitioner
DX: I10 Essential (primary) hypertension (principal); E78.5 Hyperlipidemia, unspecified
CPT/HCPCS: 36415; 80053; 80061; 85025